=== PATIENT | male | born 1955 | race Two or more races ===

== ENCOUNTER 2020-07-29 17:31 | Emergency (ER) | payer MEDICARE, OTHER ==
[~2020-07-29] VITALS: Ht 182.9 cm; Wt 96.6 kg
[2020-07-29] MEDS ORDERED: IV NORMAL SALINE 500 ML BAG IV ONE (18:00)
[2020-07-29] MEDS ORDERED: MORPHINE SULFATE 2 MG/1 ML DISP.SYRIN IV ONE (18:00)
[2020-07-29] MEDS ORDERED: FAMOTIDINE. 20 MG/2 ML VIAL IV ONE ×2 (18:00→18:05)
[2020-07-29] MEDS ORDERED: ONDANSETRON 4 MG/2 ML VIAL IV ONE (18:00)
[2020-07-29] MEDS ORDERED: MORPHINE SULFATE 4 MG/1 ML DISP.SYRIN ONE (18:05)
[2020-07-29] MEDS ORDERED: KETOROLAC TROMETHAMINE 15 MG INJ ONE (18:05)
[2020-07-29] MEDS ORDERED: ONDANSETRON 4 MG/2 ML VIAL ONE (18:05)
[2020-07-29] MEDS ORDERED: APIX5TAB4 PO (18:07)
[2020-07-29] MEDS ORDERED: CLON0.3P TD ×2 (18:07→18:12)
[2020-07-29] MEDS ORDERED: OMEP40CA13 PO (18:07)
[2020-07-29] MEDS ORDERED: SOTA80TA PO (18:07)
[2020-07-29] MEDS ORDERED: ROSU40TA PO (18:07)
[2020-07-29] MEDS ORDERED: SITA1TAB2 PO (18:07)
[2020-07-29] MEDS ORDERED: FURO40TA5 PO (18:07)
[2020-07-29] MEDS ORDERED: DILT-3 PO (18:07)
[2020-07-29] MEDS ORDERED: MEMA10TA PO (18:07)
[2020-07-29] MEDS ORDERED: POTA10CA43 PO (18:07)
[2020-07-29] MEDS: KETOROLAC TROMETHAMINE 15 MG INJ IVP ONE ×2 (18:10→18:37)
[2020-07-29 18:12] LABS: BASOPHILS # (AUTO) 0.1 K/uL (0.0-8.0); BASOPHILS % (AUTO) 0.6 % (0.0-2.0); EOSINOPHILS # (AUTO) 0.2 K/uL (0.0-0.7); EOSINOPHILS % (AUTO) 2.1 % (0.0-7.0); HEMATOCRIT 43.2 % (36.7-47.1); HEMOGLOBIN 14.6 g/dL (12.5-16.3); LYMPHOCYTES # (AUTO) 1.6 K/uL (20.0-40.0); LYMPHOCYTES % (AUTO) 13.6 % (20.5-51.5); MEAN CORPUSCULAR HEMOGLOBIN 30.5 uug (23.8-33.4); MEAN CORPUSCULAR HGB CONC 34 g/dL (32.5-36.3); MEAN CORPUSCULAR VOLUME 90.1 fL (73.0-96.2); MONOCYTES # (AUTO) 1.2 K/uL (2.0-10.0); NEUTROPHILS # (AUTO) 8.7 K/uL (1.8-8.9); NEUTROPHILS % (AUTO) 73.7 % (38.5-71.5); PLATELET COUNT (AUTO) 196 K/uL (152-348); WHITE BLOOD COUNT (AUTO) 11.9 K/uL (3.6-10.2)
[2020-07-29 18:21] LABS: CREATININE 1.5 mg/dL (0.6-1.3)
--- NOTE | 2020-07-29 18:38 | NUR ---
PT CT SCAN.
[2020-07-29 18:39] LABS: BILIRUBIN,DIRECT 0.2 mg/dL (0.0-0.2); BILIRUBIN,TOTAL 0.4 mg/dL (0.2-1.0); TOTAL PROTEIN, SERUM 8.4 g/dL (6.4-8.2)
--- NOTE | 2020-07-29 18:55 | NUR ---
Patient back to ER from CT.
--- NOTE | 2020-07-29 19:10 | NUR ---
Pt states pain and n/v gone.
--- NOTE | 2020-07-29 19:45 | NUR ---
Patient discharged to home in stable condition. Written and verbal after care instructions given. Patient verbalizes understanding of instructions. Stressed follow up or return to ER for worsening s/s. Patient out of ER with steady gait, no acute signs of distress, VSS, all belongings taken, instructed not to drive.
[2020-07-29 19:57] VITALS: BP 131/85
== END 2020-07-29 19:57 | disposition home or self-care (01) ==
LOC: ER 17:36
DX: R10.32 Left lower quadrant pain (principal); R14.0 Abdominal distension (gaseous); D72.829 Elevated white blood cell count, unspecified; K42.9 Umbilical hernia without obstruction or gangrene; N40.1 Benign prostatic hyperplasia with lower urinary tract symptoms; R33.8 Other retention of urine; R94.31 Abnormal electrocardiogram [ECG] [EKG]; Z95.810 Presence of automatic (implantable) cardiac defibrillator; K59.00 Constipation, unspecified; I51.7 Cardiomegaly
CPT/HCPCS: 36415; 71045; 74176; 80048; 80076; 83605; 83690; 84484; 85025; 93005; 96361; 96374; 96375; 99285; J2270; J2405; J3490; 70030-TC; A4663; J1885; J7040